=== PATIENT | female | born 1935 | race Caucasian/White ===

== ENCOUNTER → 2023-08-26 10:49 | Outpatient (REF) | payer OTHER, SELFPAY ==
[2023-08-26 11:43] LABS: Urine Albumin 2+ (Neg - Trace); Urine Bilirubin Negative (Negative); Urine Character Very Cloudy (Clear); Urine Color Yellow; Urine Glucose Negative (Negative); Urine Ketone Negative (Negative); Urine Leukocyte 2+ (Negative); Urine Nitrite Negative (Negative); Urine Occult Blood 3+ (Negative); Urine Specific Gravity 1.015 (<1.030); Urine Urobilinogen Negative (Neg - 1+)
[2023-08-26 12:35] LABS: Urine Bacteria Moderate (Negative); Urine Red Blood Cell 0-2 /HPF (0-2); Urine Squamous Cell 0-2 /LPF (Few); Urine White Cell 80-90 /HPF (0-5)
== END ==
LOC: OLABWPC 10:49
PROVIDERS: ATTENDING PHYSICIAN Family Medicine
DX: G31.84 Mild cognitive impairment of uncertain or unknown etiology (principal); Z86.19 Personal history of other infectious and parasitic diseases
CPT/HCPCS: 81003; 81015; 87077; 87086; 87186